=== PATIENT | male | born 1950 | race Caucasian/White ===

== ENCOUNTER 2019-06-04 09:31 | Outpatient (CLI) | payer MEDICARE, SELFPAY ==
[2019-06-04 10:20] LABS: Hemoglobin A1C 9.6 % (<5.7)
[2019-06-04 10:25] LABS: Alanine Aminotransferase 19 U/L (4-50); Albumin Level 4.1 g/dL (3.5-5.1); Alkaline Phosphatase 95 U/L (38-126); Aspartate Amino Transferase 24 U/L (17-59); Bilirubin,Total 0.3 mg/dL (0.2-1.3); Blood Urea Nitrogen 25 mg/dL (9-20); Calcium 9.1 mg/dL (8.4-10.2); Carbon Dioxide 26 mmol/L (22-30); Chloride 99 mmol/L (98-107); Cholesterol 217 mg/dL (0-200); Estimated Glomerular Filt Rate 46; Glucose 234 mg/dL (75-110); HDL Direct 39 mg/dL; Potassium 4.4 mmol/L (3.4-5.0); Sodium 138 mmol/L (137-145); Triglycerides 314 mg/dL (<150)
[2019-06-04 10:37] LABS: LDL Cholesterol Direct 102 mg/dL
[2019-06-04 10:52] LABS: Creatinine Urine 85.3 mg/dL
[2019-06-04 11:30] LABS: MALB Creatinine Ratio 667.1 mg/g (0-30)
== END 2019-06-04 09:32 | disposition home or self-care (01) ==
PROVIDERS: PCP Internal Medicine; Visit Provider Internal Medicine
DX: E11.39 Type 2 diabetes mellitus with other diabetic ophthalmic complication (principal); I12.9 Hypertensive chronic kidney disease with stage 1 through stage 4 chronic kidney disease, or unspecified chronic kidney disease; N18.3 Chronic kidney disease, stage 3 (moderate); E78.5 Hyperlipidemia, unspecified
CPT/HCPCS: 36415; 80053; 80061; 82043; 83036

== ENCOUNTER 2019-09-03 08:28 | Outpatient (CLI) | payer MEDICARE, SELFPAY ==
[2019-09-03 08:50] LABS: Hematocrit 38.8 % (42.0-52.0); Hemoglobin 13.1 g/dL (14.0-18.0); Mean Corpuscular HGB Conc 33.8 g/dl (32-36); Mean Corpuscular Hemoglobin 31.6 pg (26-34); Mean Corpuscular Volume 93.5 fl (80-100); Mean Platelet Volume 9.3 fl (7.4-10.4); Platelet Count Result 232 k/mm3 (150-375); Red Blood Count 4.15 M/mm3 (4.6-6.20); Red Cell Distribution Width 12.3 % (11.5-14.5)
[2019-09-03 08:59] LABS: Cholesterol 195 mg/dL (0-200); HDL Direct 34 mg/dL; Hemoglobin A1C 7.4 % (<5.7); Triglycerides 177 mg/dL (<150)
[2019-09-03 09:10] LABS: LDL Cholesterol Direct 110 mg/dL
[2019-09-03 09:43] LABS: Vitamin D 25 Hydroxy 42.9 ng/mL
== END 2019-09-03 08:29 | disposition home or self-care (01) ==
PROVIDERS: PCP Internal Medicine; Visit Provider Nurse Practitioner
DX: D63.8 Anemia in other chronic diseases classified elsewhere (principal); E11.39 Type 2 diabetes mellitus with other diabetic ophthalmic complication; E78.5 Hyperlipidemia, unspecified; E55.9 Vitamin D deficiency, unspecified
CPT/HCPCS: 36415; 80061; 82306; 83036; 85027

== ENCOUNTER 2020-10-01 07:43 | Outpatient (CLI) | payer MEDICARE, SELFPAY ==
[2020-10-01 08:26] LABS: Hemoglobin A1C 10.9 % (<5.7)
[2020-10-01 08:41] LABS: LDL Cholesterol Direct 75 mg/dL
[2020-10-01 08:49] LABS: Alanine Aminotransferase 20 U/L (4-50); Alkaline Phosphatase 139 U/L (38-126); Anion Gap 9 mmol/L (8-16); Aspartate Amino Transferase 25 U/L (17-59); Bilirubin,Total 0.2 mg/dL (0.2-1.3); Blood Urea Nitrogen 32 mg/dL (9-20); Calcium 9.2 mg/dL (8.4-10.2); Carbon Dioxide 24 mmol/L (22-30); Chloride 104 mmol/L (98-107); Cholesterol 314 mg/dL (0-200); Estimated Glomerular Filt Rate 40; Glucose 292 mg/dL (75-110); Potassium 4.2 mmol/L (3.4-5.0); Sodium 137 mmol/L (137-145)
[2020-10-01 09:11] LABS: Triglycerides 871 mg/dL (<150)
[2020-10-01 10:57] LABS: Creatinine Urine 105.4 mg/dL
[2020-10-01 11:23] LABS: Microalbumin Urine Random 658.7 mg/L (0-16.7)
== END 2020-10-01 07:44 | disposition home or self-care (01) ==
PROVIDERS: PCP Internal Medicine; Visit Provider Internal Medicine
DX: E11.39 Type 2 diabetes mellitus with other diabetic ophthalmic complication (principal); Z12.5 Encounter for screening for malignant neoplasm of prostate; E78.5 Hyperlipidemia, unspecified; E55.9 Vitamin D deficiency, unspecified; N18.30 Chronic kidney disease, stage 3 unspecified
CPT/HCPCS: 36415; 80053; 80061; 82043; 82306; 83036; 84153; G0103

== ENCOUNTER 2021-01-08 08:05 | Outpatient (CLI) | payer MEDICARE, SELFPAY ==
[2021-01-08 08:52] LABS: Hemoglobin A1C 10.2 % (<5.7)
[2021-01-08 08:57] LABS: Alanine Aminotransferase 35 U/L (4-50); Albumin Level 4.7 g/dL (3.5-5.1); Alkaline Phosphatase 72 U/L (38-126); Anion Gap 9 mmol/L (8-16); Aspartate Amino Transferase 36 U/L (17-59); Bilirubin,Total 0.5 mg/dL (0.2-1.3); Blood Urea Nitrogen 42 mg/dL (9-20); Calcium 9.9 mg/dL (8.4-10.2); Carbon Dioxide 26 mmol/L (22-30); Chloride 103 mmol/L (98-107); Cholesterol 190 mg/dL (0-200); Estimated Glomerular Filt Rate 28; Glucose 245 mg/dL (65-110); HDL Direct 46 mg/dL; Potassium 4.8 mmol/L (3.4-5.0); Sodium 138 mmol/L (137-145); Triglycerides 237 mg/dL (<150)
[2021-01-08 09:08] LABS: LDL Cholesterol Direct 87 mg/dL
== END 2021-01-08 08:06 | disposition home or self-care (01) ==
PROVIDERS: PCP Internal Medicine; Visit Provider Nurse Practitioner
DX: E11.39 Type 2 diabetes mellitus with other diabetic ophthalmic complication (principal); E78.5 Hyperlipidemia, unspecified
CPT/HCPCS: 36415; 80053; 80061; 83036

== ENCOUNTER 2022-12-05 02:54 | Day surgery (SDC) | payer MEDICARE, SELFPAY ==
[2022-11-25 09:43] VITALS: BMI 25.8
[2022-12-05 12:00] VITALS: BP 153/72; PULSE 73; RESP 17; TEMP 36.1; O2SAT 99
[2022-12-05] MEDS: LACTATED RINGERS 1,000 ML 150 ML IV CONT (12:20)
--- NOTE | 2022-12-05 13:00 | WPDANESEPPF ---
Anes - Initial Pre Proc Eval Procedure: Operation Date: 12/05/22 13:30 Proposed Procedures p Colonoscopy - Toby Contreras MD Date/Time: 12/05/22 13:00 Surgeon: Toby Contreras MD Pre Op Diagnosis: positive cologuard Patient Data Age: 72 Gender: M Height: 1.68 m Weight: 73.7 kg Last Vital Signs Temp 36.1 C L 12/05/22 12:00 Pulse 73 12/05/22 12:00 Resp 17 12/05/22 12:00 BP 153/72 H 12/05/22 12:00 Pulse Ox 99 12/05/22 12:00 O2 Del Method Room Air 12/05/22 12:00 Allergies Allergy/AdvReac Type Severity Reaction Status Date / Time shellfish derived AdvReac Severe Nausea and Verified 12/05/22 11:58 Vomiting Home Medications Medication Instructions Recorded Confirmed Type blood sugar diagnostic (Contour #10 ea 04/22/19 01/13/21 History Test Strips) lancets 33 gauge (BD Ultra Fine #100 ea 04/22/19 01/13/21 History Lancets) timolol 0.25 % eye drops (Betimol) 1 drop ophthalmic (eye) Q12H 04/22/19 11/25/22 History bimatoprost 0.01 % eye drops 1 drop ophthalmic (eye) QPM 06/06/19 11/25/22 History (Lumigan) dapagliflozin propanediol 10 mg 10 mg PO DAILY 11/25/22 11/25/22 History tablet (Farxiga) docosahexaenoic acid (dha)-epa 1 cap PO DAILY 11/25/22 12/05/22 History capsule insulin glargine 100 unit/mL (3 unit subcut 11/25/22 History mL) subcutaneous pen (Lantus Solostar U-100 Insulin) rosuvastatin 10 mg tablet 10 mg PO DAILY 11/25/22 11/25/22 History vitamin B complex (B 1 tablet PO DAILY 11/25/22 11/25/22 History Complex-Vitamin B12 tablet) Patient hx anesthesia problems: none Family hx anesthesia problems: none Results Review: All pre-operative results and documents have been reviewed as part of the pre-operative evaluation. [facility] Past Medical History Medical History (Updated 01/13/21 @ 09:03 by Eric Kaplan*Sandra*, DO) Chronic kidney disease, stage 3 (moderate) (11/30/18) Surgical History Surgical History Hx of cataract removal with insertion of prosthetic lens Family History Family History Mother Family history of type 2 diabetes mellitus Patient's mother is Diabetes mellitus Father Family history of congestive heart failure Patient's father is Social History Social History Smoking status: Never smoker Alcohol intake: never Substance use: never Substance use type: does not use Living arrangements: with family Spiritual care concerns: No Anes - Eval Final PreProcedure Day of Procedure 12/05/22 13:00 Patient weight: overweight Heart: regular rate and rhythm Lungs: clear to auscultation Airway: Mallampati scale class II Neurological: alert and oriented Last oral intake: >/= 8 hours ASA classification: III Emergent: no Anesthetic plan: proceed Anesthesia type and monitoring: general GIVS and standard monitoring Results Review: All pre-operative results and documents have been reviewed as part of the pre-operative evaluation. Informed Consent: The patient's anesthetic plan and its attendant risks and benefits were discussed with the patient/family/POA. Questions were solicited and answers provided to the satisfaction of the patient/family/POA.
--- NOTE | 2022-12-05 13:02 | PM.HPGS ---
History of Present Illness History of Present Illness Consent: Risks, benefits, and alternatives have been discussed and questions answered. Patient agrees to proceed with procedure. Chief complaint: positive cologuard Narrative: Dave Morales is a 72 year old male Presents for screening colonoscopy. Patient recently had Cologuard test found to be positive. Patient denies abdominal pain. He has had no bleeding. Family history noncontributory. Patient presents today for neoplasia screening. Review of Systems Review of Systems: Review of systems noncontributory. [facility] Past Medical History Medical History (Updated 12/05/22 @ 13:04 by Toby Contreras MD) Chronic kidney disease, stage 3 (moderate) (11/30/18) Surgical History Surgical History Hx of cataract removal with insertion of prosthetic lens Family History Family History Mother Family history of type 2 diabetes mellitus Patient's mother is Diabetes mellitus Father Family history of congestive heart failure Patient's father is Social History Social History Smoking status: Never smoker Alcohol intake: never Substance use: never Substance use type: does not use Living arrangements: with family Spiritual care concerns: No Meds Home Medications and Allergies Home Medications Medication Instructions Recorded Confirmed Type blood sugar diagnostic (Contour #10 ea 04/22/19 01/13/21 History Test Strips) lancets 33 gauge (BD Ultra Fine #100 ea 04/22/19 01/13/21 History Lancets) timolol 0.25 % eye drops (Betimol) 1 drop ophthalmic (eye) Q12H 04/22/19 11/25/22 History bimatoprost 0.01 % eye drops 1 drop ophthalmic (eye) QPM 06/06/19 11/25/22 History (Annetteigan) dapagliflozin propanediol 10 mg 10 mg PO DAILY 11/25/22 11/25/22 History tablet (Farxiga) docosahexaenoic acid (dha)-epa 1 cap PO DAILY 11/25/22 12/05/22 History capsule insulin glargine 100 unit/mL (3 unit subcut 11/25/22 History mL) subcutaneous pen (Lantus Solostar U-100 Insulin) rosuvastatin 10 mg tablet 10 mg PO DAILY 11/25/22 11/25/22 History vitamin B complex (B 1 tablet PO DAILY 11/25/22 11/25/22 History Complex-Vitamin B12 tablet) Allergies Allergy/AdvReac Type Severity Reaction Status Date / Time shellfish derived AdvReac Severe Nausea and Verified 12/05/22 11:58 Vomiting Vital Signs Vital Signs - 24 hr 12/05/22 12:00 Temperature 97.0 F L Pulse Rate 73 Respiratory Rate 17 Blood Pressure 153/72 H Pulse Oximetry 99 Oxygen Delivery Room Air Exam Narrative: Physical exam reveals patient to be alert. Vital signs stable. HEENT exam is unremarkable. Patient is anicteric. Lungs are clear to auscultation and percussion. Heart is without murmur or extra sounds. Abdomen bowel sounds present soft nontender with no organomegaly. Digital external rectal exam is normal. Assessment and Plan Assessment and plan (1) Positive colorectal cancer screening using Cologuard test: Code(s): R19.5 - Other fecal abnormalities Status: Acute Assessment and Plan: Patient had a positive Cologuard screening test. Plan for colonoscopy. Further recommendations may be given after endoscopy.
[2022-12-05 14:19] VITALS: BP 129/71; PULSE 63; RESP 19; O2SAT 100
[2022-12-05 14:29] VITALS: BP 137/85; PULSE 62; RESP 21; O2SAT 100
[2022-12-05 14:39] VITALS: BP 143/81; PULSE 62; RESP 22; O2SAT 100
[2022-12-05 16:47] LABS: Glucose Point of Care 103 mg/dl (65-105)
[2022-12-05 16:55] LABS: Glucose Point of Care 120 mg/dl (65-105)
== END 2022-12-05 14:52 | disposition home or self-care (01) ==
PROVIDERS: PCP Family Medicine; Visit Provider Internal Medicine Gastroenterology
PROC: 0DJD8ZZ Inspection of Lower Intestinal Tract, Via Natural or Artificial Opening Endoscopic (ICD-10-PCS; CPT 45378; principal; 2022-12-05 13:30)
DX: R19.5 Other fecal abnormalities (principal); D12.2 Benign neoplasm of ascending colon; D12.0 Benign neoplasm of cecum; K64.8 Other hemorrhoids; E11.22 Type 2 diabetes mellitus with diabetic chronic kidney disease; N18.30 Chronic kidney disease, stage 3 unspecified; Z79.84 Long term (current) use of oral hypoglycemic drugs; Z79.4 Long term (current) use of insulin
CPT/HCPCS: 45385; 82948; 88305; J2704; J7120